=== PATIENT | male | born 1995 | race Caucasian/White ===

== ENCOUNTER 2019-01-25 08:55 | Emergency (ER) | payer OTHER ==
[~2019-01-25] VITALS: Ht 167.6 cm; Wt 89.8 kg
[2019-01-25 08:59] VITALS: BP 129/80
[2019-01-25 09:10] VITALS: BP 129/80
--- NOTE | 2019-01-25 09:17 | NUR ---
PT CAME TO ED C/O NECK AND UPPER BACK PAIN X 1HR S/P T/C. PT RATES PAIIN LEVEL 9/10. AND DESCRIBES IT TENSION AND SORENESS. PT IS STEADY ON FEET. PERRLA 3MM. NO COPLAIN OF RAY. SPEECH CLEAR. A&O X4. NO RESP DISTRESS. VS STABLE. NKA DENIES PMH
--- NOTE | 2019-01-25 10:10 | NUR ---
pt and his gf left the ER, ambulatory with steady gait. they stated grew tired of waiting to be seen.
== END 2019-01-25 10:10 | disposition left against medical advice (07) ==
LOC: MED 08:55
DX: M54.2 Cervicalgia (principal); Z53.21 Procedure and treatment not carried out due to patient leaving prior to being seen by health care provider

== ENCOUNTER 2021-04-02 12:19 | Emergency (ER) | payer OTHER ==
[~2021-04-02] VITALS: Ht 167.6 cm; Wt 83.0 kg
[2021-04-02 12:59] VITALS: BP 132/83
--- NOTE | 2021-04-02 13:05 | NUR ---
pt swabbed for novel and flu
[2021-04-02] MEDS ORDERED: PROM118S5 PO (15:17)
[2021-04-02] MEDS ORDERED: NAPR-54 PO (15:17)
[2021-04-02] MEDS ORDERED: ALBU0.0912 IH (15:17)
--- NOTE | 2021-04-02 15:26 | NUR ---
PT DISCHARGED BY JOE[facility] BROWN OUTSIDE IN COVID TENT. ALL INSTRUCTIONS GIVEN BY HIM. NO NURSING CARE RENDERED.
== END 2021-04-02 15:26 | disposition home or self-care (01) ==
LOC: MED 12:19
DX: B34.9 Viral infection, unspecified (principal); Z20.822 Contact with and (suspected) exposure to COVID-19; Z79.899 Other long term (current) drug therapy
CPT/HCPCS: 87804; 99283; U0003